=== PATIENT | female | born 1995 | race Caucasian/White ===

== ENCOUNTER 2017-10-29 22:30 | Emergency (ER) | payer BC ==
[~2017-10-29] VITALS: Ht 177.8 cm; Wt 75.0 kg
[2017-10-29 22:33] VITALS: TEMP 97.2
[2017-10-30 00:08] VITALS: BP 110/67; PULSE 58
== END 2017-10-30 00:09 | disposition home or self-care (01) ==
LOC: COL.ER 22:30
DX: G43.909 Migraine, unspecified, not intractable, without status migrainosus (principal)
CPT/HCPCS: J1885; J2550